=== PATIENT | male | born 1980 | race Caucasian/White ===

== ENCOUNTER 2017-08-30 23:57 | Emergency (ER) | payer SELFPAY ==
[~2017-08-30] VITALS: Ht 185.4 cm; Wt 72.6 kg
[2017-08-31] MEDS ORDERED: HYDR-3820 (00:42)
[2017-08-31] MEDS ORDERED: GABA-488 (00:42)
[2017-08-31] MEDS ORDERED: NS IV 1000 ML 1,000 ML IV ONE ×2 (00:44→01:19)
[2017-08-31] MEDS ORDERED: PANTOPRAZOLE 40 MG/10 ML (PROTONIX) VIAL IV ONE (00:45)
[2017-08-31] MEDS ORDERED: ONDANSETRON 4 MG/2 ML (SDV) Z0FRAN IVP ONE (00:45)
[2017-08-31 00:54] LABS: BASOPHILS % (AUTO) 0 % (0-10); EOSINOPHILS # (AUTO) 0.1 10^3/uL (0.0-0.3); EOSINOPHILS % (AUTO) 2 % (0-10); HEMATOCRIT 43 % (40-54); HEMOGLOBIN 15.1 G/DL (13.3-17.7); LYMPHOCYTES # (AUTO) 2.1 X 10^3 (1.0-4.0); LYMPHOCYTES % (AUTO) 29 % (12-44); MEAN CORPUSCULAR HEMOGLOBIN 31 PG (25-34); MEAN CORPUSCULAR HGB CONC 35 G/DL (32-36); MEAN CORPUSCULAR VOLUME 88 FL (80-99); MEAN PLATELET VOLUME 9.6 FL (7.4-10.4); MONOCYTES # (AUTO) 0.6 X 10^3 (0.0-1.0); MONOCYTES % (AUTO) 8 % (0-12); NEUTROPHILS # (AUTO) 4.6 X 10^3 (1.8-7.8); NEUTROPHILS % (AUTO) 62 % (42-75); PLATELET COUNT 323 10^3/uL (130-400); RED BLOOD COUNT 4.91 10^6/uL (4.35-5.85); RED CELL DISTRIBUTION WIDTH 14.3 % (10.0-14.5); WHITE BLOOD COUNT 7.5 10^3/uL (4.3-11.0)
--- NOTE | 2017-08-31 00:58 | ED Abdominal Pain ---
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 Sepsis Screen: No Definite Risk (ELA CLARK) History of Present Illness Date Seen by Provider: Aug 31, 2017 Time Seen by Provider: 00:19 Initial Comments This is a 36 y/o male presenting to the ED with chief complaint of severe epigastric and RUQ abdominal pain and vomiting that has been going on since yesterday morning 08/30. Pt thinks he is dehydrated due to the high amounts of vomiting. Pt states he has PMH of PUD and has had multiple hospitalization due to episodes of gastritis, severe vomiting and low electrolytes. Pt admits to muscle cramps, dry heaving, slightly bloody vomit, body aches, lightheadedness, dizziness, specs of light in his vision. 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 PMH of R testicular cancer, with removal of the right testicle. Pt states he finished chemo last October and is due to F/U with his oncologist Dr. Lennon in 1-2 months. Pt admits to smoking and THC use and meth use in the last 3 days. (ELA CLARK STUDENT) Allergies and Home Medications Allergies Coded Allergies: No Known Drug Allergies (Unverified , 08/31/17) Home Medications Ondansetron 4 Mg Tab.rapdis, 4 MG SL Q4H PRN for NAUSEA/VOMITING-1ST LINE Prescribed by: YOVANY DOZIER on 08/31/17 0412 Patient Home Medication List Home Medication List Reviewed: Yes (ELA CLARK STUDENT) Review of Systems Constitutional: see HPI EENTM: See HPI Respiratory: Other (SOB with history of asthma ) Cardiovascular: See HPI; Denies Chest Pain; Lightheadedness; Denies Syncope Gastrointestinal: See HPI, Abdominal Pain, Nausea, Poor Fluid Intake, Vomiting Genitourinary: No Symptoms Reported Musculoskeletal: see HPI, muscle cramps Skin: no symptoms reported Psychiatric/Neurological: No Symptoms Reported Endocrine: No Symptoms Reported (ELA CLARK STUDENT) Past Cqelsfo-Mittfl-Kgzewz Hx Patient Social History Alcohol Use: Rarely Uses Recreational Drug Use: Yes (REPORTS PAST HX METH AND THC) Smoking Status: Current Everyday Smoker Type Used: Cigarettes 2nd Hand Smoke Exposure: Yes Recent Foreign Travel: No Contact w/Someone Who Travel: No Recent Infectious Disease Expo: No Recent Hopitalizations: No (ELA CLARK) Seasonal Allergies Seasonal Allergies: No (ELA CLARK) Past Medical History Surgeries: Yes (R ORCHIECTOMY) Testicular Respiratory: No Cardiac: No 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 oz. 72.507841en; BMI Method:Stated General Appearance: WD/WN, no apparent distress HEENT: PERRL/EOMI, TMs normal, pharynx normal, other (oral mucosa is dry ) Respiratory: chest non-tender, lungs clear, normal breath sounds, no respiratory distress, no accessory muscle use Cardiovascular: normal peripheral pulses, regular rate, rhythm, no edema, no gallop, no JVD, no murmur, other (brisk cap refill) Gastrointestinal: normal bowel sounds, soft, no organomegaly, no pulsatile mass , guarding (with palpation ), tenderness (Tenderness to the LUQ and epigastric area, peritoneal signs negative. ), other (Tenderness to the RLQ due to past testicular sugery. ) Back: normal inspection, no CVA tenderness, no vertebral tenderness Neurologic/Psychiatric: no motor/sensory deficits, alert, normal mood/affect, oriented x 3 Skin: normal color, warm/dry (ELA CLARK) Progress/Results/Core Measures Results/Orders Lab Results Laboratory Tests Test 08/31/17 00:15 08/31/17 01:35 Range/Units White Blood Count 7.5 4.3-11.0 10^3/uL Red Blood Count 4.91 4.35-5.85 10^6/uL Hemoglobin 15.1 13.3-17.7 G/DL Hematocrit 43 40-54 % Mean Corpuscular Volume 88 80-99 FL Mean Corpuscular Hemoglobin 31 25-34 PG Mean Corpuscular Hemoglobin Concent 35 32-36 G/DL Red Cell Distribution Width 14.3 10.0-14.5 % Platelet Count 323 130-400 10^3/uL Mean Platelet Volume 9.6 7.4-10.4 FL Neutrophils (%) (Auto) 62 42-75 % Lymphocytes (%) (Auto) 29 12-44 % Monocytes (%) (Auto) 8 0-12 % Eosinophils (%) (Auto) 2 0-10 % Basophils (%) (Auto) 0 0-10 % Neutrophils # (Auto) 4.6 1.8-7.8 X 10^3 Lymphocytes # (Auto) 2.1 1.0-4.0 X 10^3 Monocytes # (Auto) 0.6 0.0-1.0 X 10^3 Eosinophils # (Auto) 0.1 0.0-0.3 10^3/uL Basophils # (Auto) 0.0 0.0-0.1 10^3/uL Sodium Level 139 135-145 MMOL/L Potassium Level 3.6 3.6-5.0 MMOL/L Chloride Level 107 98-107 MMOL/L Carbon Dioxide Level 18 L 21-32 MMOL/L Anion Gap 14 5-14 MMOL/L Blood Urea Nitrogen 30 H 7-18 MG/DL Creatinine 1.64 H 0.60-1.30 MG/DL Estimat Glomerular Filtration Rate 47 BUN/Creatinine Ratio 18 Glucose Level 104 70-105 MG/DL Calcium Level 9.9 8.5-10.1 MG/DL Total Bilirubin 0.6 0.1-1.0 MG/DL Aspartate Amino Transf (AST/SGOT) 26 5-34 U/L Alanine Aminotransferase (ALT/SGPT) 16 0-55 U/L Alkaline Phosphatase 80 40-136 U/L Total Creatine Kinase 435 H 30-200 U/L Total Protein 8.2 6.4-8.2 GM/DL Albumin 4.8 H 3.2-4.5 GM/DL Lipase 8 8-78 U/L Serum Alcohol < 10 <10 MG/DL Urine Opiates Screen POSITIVE H NEGATIVE Urine Oxycodone Screen NEGATIVE NEGATIVE Urine Methadone Screen NEGATIVE NEGATIVE Urine Propoxyphene Screen NEGATIVE NEGATIVE Urine Barbiturates Screen NEGATIVE NEGATIVE Ur Tricyclic Antidepressants Screen NEGATIVE NEGATIVE Urine Phencyclidine Screen NEGATIVE NEGATIVE Urine Amphetamines Screen POSITIVE H NEGATIVE Urine Methamphetamines Screen POSITIVE H NEGATIVE Urine Benzodiazepines Screen NEGATIVE NEGATIVE Urine Cocaine Screen NEGATIVE NEGATIVE Urine Cannabinoids Screen POSITIVE H NEGATIVE (YOVANY ANGUIANO MD) My Orders Orders - YOVANY ANGUIANO MD Alcohol (08/31/17 00:44) Cbc With Automated Diff (08/31/17 00:44) Comprehensive Metabolic Panel (08/31/17 00:44) Lipase (08/31/17 00:44) Saline Lock/Iv-Start (08/31/17 00:44) Saline Lock/Iv-Start (08/31/17 00:44) Ns Iv 1000 Ml (Sodium Chloride 0.9%) (08/31/17 00:44) Ranitidine Injection (Zantac Injection) (08/31/17 09:00) Pantoprazole Injection (Protonix Injecti (08/31/17 00:45) Ondansetron Injection (Zofran Injectio (08/31/17 00:45) Drug Screen Stat (Urine) (08/31/17 00:47) Lidocaine 2% Viscous 15 Ml (Xylocaine Vi (08/31/17 01:00) Antacid Suspension (Mylanta Suspension (08/31/17 01:00) Saline Lock/Iv-Start (08/31/17 01:19) Ns Iv 1000 Ml (Sodium Chloride 0.9%) (08/31/17 01:19) Ranitidine Injection (Zantac Injection) (08/31/17 01:44) Ct Abdomen/Pelvis Wo (08/31/17 02:42) Creatine Kinase (08/31/17 02:42) (YOVANY ANGUIANO MD) Medications Given in ED (YOVANY ANGUIANO MD) Vital Signs/I&O 08/31/17 08/31/17 00:05 04:21 Temp 98.1 98.1 Pulse 101 92 Resp 20 20 B/P (MAP) 124/83 (97) 118/79 (97) Pulse Ox 100 100 O2 Delivery Room Air (YOVANY ANGUIANO MD) Blood Pressure Mean: 97 Progress Progress Note #1: Time: 02:44 Progress Note Patient re examined after initial treatment, pt is still very tender to touch on the abdomen. Will proceed with CT scan to R/O appendicitis, perforated ulcer. Progress Note #2: Time: 04:[address] showed no acute abnormalities; Pain may be a combination of meth abuse, PUD and gastritis. (ELA CLARK MED STUDENT) Progress Note : Progress Note Patient was personally interviewed, seen, and examined by me along with [employer], [employer] student. I agree with her history, exam, assessment, and plan with the following additions. Patient was found to have renal insufficiency, likely due to hypovolemia. 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 He was hydrated with 2 L of IV fluids. A creatinine kinase was added to his labs and found to be mildly elevated. Patient likely has mild rhabdomyolysis. He was instructed not to work today to allow time to rest and hydrate. Patient was also found to have a positive drug screen correlating with his admission to recent methamphetamine and marijuana use. We discussed the dangers of substance abuse and he was advised to seek substance abuse treatment near where he lives. Patient was reexamined after treatment with ranitidine, Protonix, Zofran, and GI cocktail. He still had notable diffuse tenderness to palpation with guarding. CT scan was therefore recommended and patient was agreeable. No acute findings were found to explain his pain. Patient did imply that he has not been taking his Protonix routinely. He states Ativan works better for his gastritis and pain than Protonix. Exam: Gen.: Alert, oriented, no acute distress, well-developed, thin HEENT: normocephalic and atraumatic, mucous membranes somewhat moist Heart: Regular rate and rhythm without murmur Lungs: Clear to auscultation bilaterally Abdomen: Soft, normal bowel sounds, diffuse tenderness most pronounced in the upper quadrants with guarding throughout even to light percussion Extremities: Normal to inspection Skin: Warm and dry without rashes Neuropsych: Alert, oriented, no focal deficits (YOVANY ANGUIANO MD) Diagnostic Imaging Diagonstic Imaging: CT Plain Films/CT/US/NM/MRI: abdomen, pelvis Comments Ct reviewed by me and report reviewed: no acute abnormalities noted, an incidental finding of a 17 mm right adrenal mass. (ELA CLARK MED STUDENT) Departure Impression Primary Impression: Generalized abdominal pain Additional Impressions: Nausea and vomiting Qualified Codes: R11.2 - Nausea with vomiting, unspecified Polysubstance abuse Rhabdomyolysis Qualified Codes: M62.82 - Rhabdomyolysis Renal insufficiency Adrenal nodule Disposition: 01 HOME, SELF-CARE Condition: Improved Departure-Patient Inst. Decision time for Depature: 04:00 (YOVANY ANGUIANO MD) Referrals: NO,LOCAL PHYSICIAN (PCP/Family) Primary Care Physician Patient Instructions: Acute Abdomen (Belly Pain), Adult (DC), Methamphetamine, Rhabdomyolysis Add. Discharge Instructions: Drink plenty of clear liquids. Take your Protonix every day. Follow-up with your doctor as soon as possible. Use Zofran (ondansetron) as prescribed for nausea and vomiting. Discontinue use of methamphetamines and marijuana. These substances are likely contributing to your symptoms. Contact the social work department at the hospital nearest your home to inquire about local substance abuse treatment programs. Return to care if symptoms worsen again. Do not go to work today. A work note has been provided. You have an adrenal nodule incidentally noted on your CT scan. Please have your primary care doctor review your CT scan results and discuss with you further. All discharge instructions reviewed with patient and/or family. Voiced understanding. Scripts Ondansetron (Zofran Odt) 4 Mg Tab.rapdis 4 MG SL Q4H PRN for NAUSEA/VOMITING-1ST LINE, #10 TAB Prov: YOVANY ANGUIANO MD 08/31/17 Work/School Note: Work Release Form Date Seen in the Emergency Department: Aug 31, 2017 Return to Work: Sep 01, 2017 Restrictions: No Restrictions ELA CLARK MED STUDENT Aug 31, 2017 00:57 YOVANY ANGUIANO MD Aug 31, 2017 04:12
[2017-08-31] MEDS ORDERED: ANTACID SUSP 30 ML UDC (MYLANTA) PO ONE (01:00)
[2017-08-31] MEDS ORDERED: LIDOCAINE 2% VISCOUS 15 ML UDC PO ONE (01:00)
[2017-08-31 01:08] LABS: ALANINE AMINOTRANSFERASE 16 U/L (0-55); ALBUMIN 4.8 GM/DL (3.2-4.5); ALKALINE PHOSPHATASE 80 U/L (40-136); BILIRUBIN,TOTAL 0.6 MG/DL (0.1-1.0); BUN/CREATININE RATIO 18; CALCIUM 9.9 MG/DL (8.5-10.1); CARBON DIOXIDE 18 MMOL/L (21-32); CHLORIDE 107 MMOL/L (98-107); CREATININE SERUM 1.64 MG/DL (0.60-1.30); GFR ESTIMATED 47; GLUCOSE 104 MG/DL (70-105); LIPASE 8 U/L (8-78); POTASSIUM 3.6 MMOL/L (3.6-5.0); SODIUM 139 MMOL/L (135-145); TOTAL PROTEIN 8.2 GM/DL (6.4-8.2)
[2017-08-31] MEDS ORDERED: raNItidine 50 MG/2 ML INJ (ZANTAC) ONE (01:44)
[2017-08-31 01:58] LABS: AMPHETAMINE SCREEN, URINE POSITIVE (NEGATIVE); BARBITURATE SCREEN URINE NEGATIVE (NEGATIVE); BENZODIAZEPINES SCREEN URINE NEGATIVE (NEGATIVE); CANNABINOID SCREEN, URINE POSITIVE (NEGATIVE); COCAINE SCREEN URINE NEGATIVE (NEGATIVE); METHADONE STAT NEGATIVE (NEGATIVE); METHAMPHETAMINE SCREEN URINE S POSITIVE (NEGATIVE); OPIATE SCREEN URINE POSITIVE (NEGATIVE); OXYCODONE STAT NEGATIVE (NEGATIVE); PROPOXYPHENE STAT NEGATIVE (NEGATIVE); TRICYCLIC ANTIDEPRESSANTS SCRE NEGATIVE (NEGATIVE)
[2017-08-31] MEDS ORDERED: ONDA4TAB8 SL (04:12)
[2017-08-31 04:21] VITALS: BP 118/79
--- NOTE | 2017-08-31 07:03 | Diagnostic Imaging Report ---
PROCEDURE: CT abdomen and pelvis without contrast. TECHNIQUE: Multiple contiguous axial images were obtained through the abdomen and pelvis without the use of intravenous contrast. INDICATION: Abdominal pain with dehydration. FINDINGS: The lung bases are clear. Liver appears normal. Gallbladder and bile ducts are normal. Pancreas and spleen are normal. Adrenal glands show a well-circumscribed fatty lesion on the right measuring approximately 1.7 cm. This shows mean Hounsfield unit of -22. Left adrenal gland is normal. The kidneys show no evidence of obstruction or calculi. Renal outlines are smooth. No evidence of perinephric fluid. Ureters are not distended. Bladder appears normal. The stomach and small bowel are not distended. The colon shows normal stool and gas pattern. The appendix is visualized and normal. There is no free air or free fluid. There is a small indirect inguinal hernia on the left. IMPRESSION: 1. 1.7 cm fatty lesion right adrenal gland consistent with benign adenoma. 2. Small indirect inguinal hernia on the left without evidence of bowel within the hernia. Dictated by: Dictated on workstation # [id number]
[2017-08-31] MEDS ORDERED: raNItidine 50 MG/2 ML INJ (ZANTAC) IV ONE (09:00)
== END 2017-08-31 04:21 | disposition home or self-care (01) ==
LOC: ER 23:59
DX: R10.84 Generalized abdominal pain (principal); R11.2 Nausea with vomiting, unspecified; M62.82 Rhabdomyolysis; N28.9 Disorder of kidney and ureter, unspecified; E27.9 Disorder of adrenal gland, unspecified; F15.10 Other stimulant abuse, uncomplicated; F17.210 Nicotine dependence, cigarettes, uncomplicated; Z85.47 Personal history of malignant neoplasm of testis
CPT/HCPCS: 36415; 74176; 80053; 80306; 80320; 82550; 83690; 85025; 96361; 96365; 96375